=== PATIENT | female | born 2000 | race Caucasian/White ===

== ENCOUNTER 2019-11-11 18:15 | Emergency (ER) | payer BC ==
[2019-11-11] MEDS ORDERED: Formoterol/Mometasone 100-5 MCG 8.8 GM Inhaler ONE (18:50)
[2019-11-11] MEDS ORDERED: Albuterol 8 GM Inhaler INH ONE ×2 (18:50→19:20)
[2019-11-11] MEDS ORDERED: predniSONE 10 MG Tab ONE (18:50)
--- NOTE | 2019-11-12 01:39 | ER ---
HISTORY OF PRESENT ILLNESS: 19-year-old female who comes in with her father with complaints of episodes of dizziness that is intermittent. It has been ongoing for the last couple of days. Seems to be worse with movement or activity. She has had a little bit of shortness of breath with these episodes. The patient has been coughing a lot as well. She has been coughing for 2-3 weeks. She actually was treated for possible pneumonia a couple of weeks ago with an antibiotic. It did not seem to help very much. The patient has not been running a fever lately. She states that she tried to go to work today and the dizziness became somewhat concerning and she was told to come in for evaluation. PAST MEDICAL HISTORY: Congenital heart block. She has been following Cardiology with this and sees them every 3 years. Nothing has been needed recently in this direction. OBJECTIVE: GENERAL APPEARANCE: The patient is awake and alert. No obvious distress. Well nourished. VITAL SIGNS: Reviewed. Blood pressure is a little elevated 150s over 90s on our first attempt. Pulse is slightly bradycardic in the 60s. O2 sats are good. EARS: TMs are normal. Nares are patent. EYES: Pupils equal, round, and reactive to light. EOMs are intact. Oral mucous membranes moist. Tonsils not enlarged or injected. Pharynx not inflamed. NECK: Supple. LUNGS: Reveals slightly reduced air exchange. I do not hear any rales, wheezes, or rhonchi. CARDIAC: Heart sounds distinct. There is a murmur noted that is also congenital. S1, S2 present. SKIN: Warm and dry. Initial workup includes an EKG showing a 1st degree block. The T-waves appear to be slightly taller than I would expect and no other abnormal findings. Labs include CBC showing a normal white count. Monos are elevated. Comprehensive metabolic panel shows her electrolytes are good. Potassium is 4.3, blood glucose 107, AST 43, ALT 126, and a chest x-ray shows some peribronchial cuffing consistent with reactive airway disease. Hallpike maneuver is negative tonight. DIAGNOSES: 1. Reactive airway disease. 2. Elevated liver enzymes, possibly due to the infection that I believe is viral. TREATMENT PLAN: The patient will be started on oral prednisone 40 mg tonight, then 30 mg x1 day, then 20 mg x2 days, then 10 mg x4 days. She will be started on an albuterol inhaler 2 puffs every 4 hours while awake for the next day and then as needed and Dulera will be started 100/5 two puffs b.i.d. She is to take it easy over the weekend. I want the patient to follow up Thursday in the clinic, sooner in the emergency room if her condition should happen to get worse. ANNIE/MODL /[id number]
--- NOTE | 2019-11-12 16:40 | CR ---
CLINICAL DATA: Dizziness. AP CHEST, 11 NOVEMBER 2019: No priors. The heart size is normal. The lungs are clear. No pneumothorax. No pleural effusions. No evidence of acute intrathoracic disease. Job: [id number] MTDD
== END 2019-11-11 19:33 | disposition home or self-care (01) ==
LOC: LB.ED 18:15
DX: J45.909 Unspecified asthma, uncomplicated (principal); R74.8 Abnormal levels of other serum enzymes
CPT/HCPCS: 36415; 71045; 80053; 85025; 93005; 99285-25; A9270-GY

== ENCOUNTER 2020-08-20 14:05 | Emergency (ER) | payer BC ==
--- NOTE | 2020-08-20 18:45 | EDM.PDOC ---
ED HPI GENERAL MEDICAL PROBLEM - General Chief Complaint: General Stated Complaint: TROUBLE BREATHING Time Seen by Provider: 08/20/20 15:15 Source of Information: Reports: Patient History Limitations: Reports: No Limitations - History of Present Illness INITIAL COMMENTS - FREE TEXT/NARRATIVE: Ms. Dubon is a healthy well nourished 20YO female with no chronic medical problems. She takes Hydroxyzine for anxiety. Today she was tested for COVID 19 due to mild SOB symptoms. She states she has some numbness and tingling in her hands and feet. No GUTIERREZ, fever, cough abdominal pain nausea or vomiting. Her father also tested positive for COVID. She has not taken anything for her symptoms. No other concerns. Onset: Today Duration: Hour(s):, Improving Location: Reports: Chest (mild SOB) Severity: Mild (Has not tried anything for symptoms) Associated Symptoms: Reports: Shortness of Breath - Related Data Allergies Allergy/AdvReac Type Severity Reaction Status Date / Time No Known Allergies Allergy Verified 11/11/19 18:21 Home Meds: Home Meds hydrOXYzine HCL [Atarax] 50 mg PO DAILY PRN 08/20/20 [History] Past Medical History Cardiovascular History: Reports: Other (See Below) Other Cardiovascular History: Hx III Heart Block Psychiatric History: Reports: Anxiety Social & Family History - Tobacco Use Tobacco Use Status *Q: Former Tobacco User Years of Tobacco use: 2 Packs/Tins Daily: 0.5 Used Tobacco, but Quit: Yes Month/Year Tobacco Last Used: 07/2020 - Caffeine Use Caffeine Use: Reports: Soda - Recreational Drug Use Recreational Drug Use: Yes Recreational Drug Type: Reports: Marijuana/Hashish ED ROS GENERAL - Review of Systems Review Of Systems: See Below Constitutional: Reports: No Symptoms HEENT: Reports: No Symptoms Respiratory: Reports: Shortness of Breath Cardiovascular: Reports: No Symptoms Endocrine: Reports: No Symptoms GI/Abdominal: Reports: No Symptoms : Reports: No Symptoms Musculoskeletal: Reports: No Symptoms Skin: Reports: No Symptoms Neurological: Reports: Tingling (in her hands and feet) Psychiatric: Reports: Anxiety Hematologic/Lymphatic: Reports: No Symptoms Immunologic: Reports: No Symptoms ED EXAM, GENERAL - Physical Exam Exam: See Below Exam Limited By: No Limitations General Appearance: Alert, WD/WN, Anxious Eye Exam: Bilateral Eye: PERRL Ears: Normal External Exam Nose: Normal Inspection, Normal Mucosa, No Blood Throat/Mouth: Normal Inspection, Normal Lips, Other (Poor dentition) Head: Atraumatic, Normocephalic Neck: Normal Inspection, Non-Tender Respiratory/Chest: No Respiratory Distress, Lungs Clear, Normal Breath Sounds Peripheral Pulses: 2+: Radial (L), Radial (R) GI/Abdominal: Normal Bowel Sounds, Soft, Non-Tender Extremities: Normal Inspection Neurological: Alert, Oriented, CN II-XII Intact Psychiatric: Normal Affect, Anxious Skin Exam: Warm, Dry, Intact, No Rash Lymphatic: No Adenopathy Course - Vital Signs Last Recorded V/S: Last Vital Signs Temp 34.4 C L 08/20/20 14:43 Pulse 59 L 08/20/20 14:43 Resp 16 08/20/20 14:43 BP 130/70 08/20/20 14:43 Pulse Ox 96 08/20/20 14:43 - Orders/Labs/Meds Labs: Laboratory Tests 08/20/20 08/20/20 Range/Units 15:04 15:04 WBC 6.2 D (4.0-11.0) K/uL RBC 5.01 (3.80-5.80) M/uL Hgb 15.5 (11.5-16.5) g/dL Hct 44.4 (37.0-47.0) % MCV 89 (76-96) fL MCH 30.9 (27.0-32.0) pg MCHC 34.9 (31.0-35.0) g/dL RDW 11.8 (11.0-16.0) % Plt Count 241 D (150-500) K/uL MPV 11.0 H (6.0-10.0) fL Neut % (Auto) 47.7 (45.0-70.0) % Lymph % (Auto) 38.2 (20.0-40.0) % Antelope % (Auto) 13.3 H (3.0-10.0) % Eos % (Auto) 0.6 L (1.0-5.0) % Baso % (Auto) 0.2 (0.0-0.5) % Neut # (Auto) 2.95 (2.00-7.50) K/uL Lymph # (Auto) 2.36 (1.50-4.00) K/uL Antelope # (Auto) 0.82 H (0.20-0.80) K/uL Eos # (Auto) 0.04 (0.04-0.40) K/uL Baso # (Auto) 0.01 L (0.02-0.10) K/uL Sodium 141 (136-145) mmol/L Potassium 3.7 (3.5-5.1) mmol/L Chloride 104 (98-107) mmol/L Carbon Dioxide 24.9 (21.0-32.0) mmol/L Anion Gap 15.8 H (5.0-15.0) mmol/L BUN 9 D (8-26) mg/dL Creatinine 0.82 (0.55-1.02) mg/dL Est Cr Clr Drug Dosing 117.36 mL/min Estimated GFR (MDRD) > 60 (>60) MLS/MIN BUN/Creatinine Ratio 11.0 (6-25) Glucose 107 H (74-100) mg/dL Calcium 9.3 (8.5-10.1) mg/dL Total Bilirubin 0.6 (0.0-1.0) mg/dL AST 63 H (15-37) U/L ALT 161 H (12-78) U/L Alkaline Phosphatase 48 (46-116) U/L Total Protein 8.3 H (6.4-8.2) g/dL Albumin 4.1 (3.4-5.0) g/dL Globulin 4.2 (2.2-4.2) g/dL Albumin/Globulin Ratio 1.0 (0.8-2.0) Departure - Departure Time of Disposition: 16:15 Disposition: Home, Self-Care 01 Clinical Impression: COVID-19 - Discharge Information *PRESCRIPTION DRUG MONITORING PROGRAM REVIEWED*: Not Applicable *COPY OF PRESCRIPTION DRUG MONITORING REPORT IN PATIENT [facility]IL[facility]: Not Applicable Instructions: Prevent the Spread of COVID-19 if You Are Sick - CDC Referrals: PCP,None [Primary Care Provider] - Forms: ED Department Discharge Additional Instructions: Drink plenty of fluids (water) and get plenty of rest. Diet and activity as tolerated. May use Tylenol and/or Ibuprofen for headaches or other aches and pains related to COVID-19 infection. Return to ER for further evaluation should you have any worsening of symptoms. Continue to self isolate for at least 14 days, as well as 72 hours since resolution of symptoms including no fever without use of Tylenol or Ibuprofen. Call with any questions. Sepsis Event Note (ED) - Evaluation Sepsis Screening Result: No Definite Risk - Focused Exam Vital Signs: Vital Signs Temp Pulse Resp BP Pulse Ox 08/20/20 14:43 34.4 C L 59 L 16 130/70 96 08/20/20 14:40 34.4 C L 59 L 16 130/70 96
[2020-08-20] MEDS ORDERED: hydrOXYzine HCl 25 MG Tab PO PRN (19:04)
== END 2020-08-20 16:15 | disposition home or self-care (01) ==
LOC: LB.ED 14:05
DX: U07.1 COVID-19 (principal); Z87.891 Personal history of nicotine dependence
CPT/HCPCS: 36415; 80053; 85025; 99284